=== PATIENT | male | born 1970 | race Caucasian/White ===

== ENCOUNTER 2019-07-24 14:42 | Outpatient (CLI) | payer OTHER, SELFPAY ==
--- NOTE | 2019-07-24 15:00 | USCV_ITS ---
Tutu Shane Age: 48 Gender: M : 1970 Exam Date: 07/24/2019 15:08 Ordering Phys: Jose Maharaj MD ([email or web address]) Technologist: SHASHI BLISS Exam Location: [facility] – [place] Indication: CHEST PAIN. ABNORMAL STRESS TEST. BP: 110 / 65 HR: 81 Rhythm: Sinus Technical Quality: Adequate MEASUREMENTS (Male / Female) Normal Values 2D ECHO LV Diastolic Diameter PLAX 4.7 cm 4.2 - 5.9 / 3.9 - 5.3 cm LV Systolic Diameter PLAX 2.8 cm IVS Diastolic Thickness 1.0 cm 0.6 - 1.0 / 0.6 - 0.9 cm IVS Systolic Thickness 1.4 cm LVPW Diastolic Thickness 0.8 cm 0.6 - 1.0 / 0.6 - 0.9 cm LVPW Systolic Thickness 1.5 cm LVOT Diameter 2.1 cm LV Ejection Fraction 2D Teich 71.4 % LV Ejection Fraction MOD 2C 68.3 % LV Ejection Fraction 2C AL 70.0 % LA Diameter 3.9 cm LA Width 3.7 cm LA Height 4.3 cm RA Width 3.5 cm RA Height 4.7 cm Aorta at Sinotubular Diameter 3.0 cm M-MODE LV Diastolic Diameter MM 5.4 cm 4.2 - 5.9 / 3.9 - 5.3 cm LV Systolic Diameter MM 3.3 cm LV Ejection Fraction MM Teich 69.4 % IVS Diastolic Thickness MM 0.8 cm 0.6 - 1.0 / 0.6 - 0.9 cm IVS Systolic Thickness MM 1.5 cm LVPW Diastolic Thickness MM 0.9 cm 0.6 - 1.0 / 0.6 - 0.9 cm LVPW Systolic Thickness MM 1.3 cm Aortic Annulus Diameter 3.3 cm LA Ao Ratio MM 1.2 MV E Point Septal Separation 0.1 cm DOPPLER AV Peak Velocity 105.0 cm/s LVOT Peak Velocity 89.0 cm/s AV Area Cont Eq vti 2.9 cm squared AV Area Cont Eq pk 2.9 cm squared MV Area PHT 3.2 cm squared Mitral E to A Ratio 1.3 MV E' Velocity 11.0 cm/s Mitral E to MV E' Ratio 7.6 Mitral E to LV E' Lateral Ratio 6.8 Mitral E to LV E' Septal Ratio 8.7 TV Peak E Velocity 46.0 cm/s Right Atrial Pressure 3.0 mmHg PV Peak Velocity 88.0 cm/s RV Acceleration Time 0.1 s RV Ejection Time 0.2 s RV AcT/ET 0.4 FINDINGS Left Ventricle Normal left ventricular size and systolic function, EF 67 %. No regional wall motion abnormalities. Right Ventricle The right ventricle is normal in size and function. Right Atrium The right atrium is normal in size. Left Atrium The left atrium is normal in size. Mitral Valve No gross abnormalities noted Aortic Valve No gross abnormalities noted Tricuspid Valve No gross abnormalities noted Pulmonic Valve No gross abnormalities noted Pericardium Normal pericardium without effusion. Aorta Normal ascending aorta dimension. CONCLUSIONS Normal left ventricular size and systolic function, EF 67 %. No regional wall motion abnormalities. Normal chamber sizes. No significant stenotic or elevated lesions noted There is no pericardial effusion. There are no intracardiac masses. Compared to the study report from 05/15/2013, there may not be a significant change Dr Jose Maharaj MD FACC (Electronically Signed) Final Date: 25 July 2019 16:12 S
== END 2019-07-24 14:43 | disposition home or self-care (01) ==
LOC: RAD 14:45
PROVIDERS: Family Provider Family Medicine; PCP Family Medicine; Visit Provider Internal Medicine Cardiovascular Disease
DX: R07.89 Other chest pain (principal); R94.39 Abnormal result of other cardiovascular function study
CPT/HCPCS: 93306

== ENCOUNTER 2019-08-06 05:55 | Day surgery (SDC) | payer OTHER, SELFPAY ==
--- NOTE | 2019-07-31 09:59 | XR_ITS ---
WS: [id number] PROCEDURE: XR chest 2V* [id number] CLINICAL INFORMATION: CHEST PAIN COMPARISON: March 18, 2013 FINDINGS: Heart: Normal cardiac silhouette. Lungs: Lungs are clear. No consolidation or pleural fluid. Bones: Normal visualized bony structures. XR/XR chest 2V* [id number] IMPRESSION: Normal chest
[2019-07-31 10:37] LABS: Basophils % 0.3 %; Eosinophils # 0.2 10^3/uL (0.0-0.8); Eosinophils % 2.6 %; Hematocrit 45.9 % (42.0-52.0); Hemoglobin 15.7 g/dL (11.7-16.6); Lymphocytes # 1.1 10^3/uL (0.8-4.8); Lymphocytes % 17.9 %; Mean Corpuscular HGB Conc 34.2 g/dL (30.0-36.0); Mean Corpuscular Hemoglobin 29.8 pg (28.0-34.0); Mean Corpuscular Volume 87.1 fL (80-94); Monocytes # 0.5 10^3/uL (0.2-0.9); Monocytes % 7.6 %; Neutrophils # 4.3 10^3/uL (1.8-7.7); Neutrophils % 71.1 %; Nucleated Red Blood Cells % 0 %; Platelet Count 240 10^3/cmm (130-400); Red Blood Count 5.27 10^6/uL (4.1-5.3); Red Cell Distribution Width 11.7 % (12.1-15.1); White Blood Count 6.1 10^3/uL (4.0-10.0)
[2019-07-31 10:43] LABS: INR 0.99 (0.8-1.2)
[2019-07-31 11:03] LABS: Anion Gap 16.5 (5-19); Blood Urea Nitrogen 17 mg/dL (6-20); Calcium 10.4 mg/Dl (8.6-10.0); Carbon Dioxide 26 mmol/L (22-29); Chloride 100 mmol/L (98-107); Glomerular Filtration Rate 89.7 mL/min (90-130); Glucose 105 mg/dL (74-109); Potassium 4.5 mmol/L (3.5-5.1); Sodium 138 mmol/L (136-145)
[2019-08-05 12:27] VITALS: BMI 28.8
[2019-08-06] VITALS (12 sets, daily range): BP systolic 95–156; BP diastolic 62–91; PULSE 62–74; RESP 14–18; TEMP 36.8; O2SAT 94–97; BMI 28.8
--- NOTE | 2019-08-06 06:00 | XACV_ITS ---
Ht: 183 cm Wt: 97 kg BSA: 2.23 m2 Gender: Male : 1970 Any Known Allergies: Other Exam Priority: Routine Procedure(s): Procedure Description: Diagnostic procedure Procedure Description: Left Heart Catheterization Procedure Description: Left ventriculography Procedure Description: Coronary Angiography Diagnostic Cath Status: Elective Diagnostic Findings No significant disease noted in the Left Main, LAD, Circumflex, or RCA coronary arteries. The left anterior descending artery appears to wrap around the LV apex minimally. The right coronary artery is a relatively large-caliber vessel. Coronary angiography shows right dominance. Conclusions No significant disease noted in the Left Main, LAD, Circumflex, or RCA coronary arteries. Normal left ventricular systolic function. Ejection fraction of 55%. Features of multiple small ventricular diverticuli were noted in the inferior wall region. Recommendations Continue current medical management and risk factor modification. Diagnostic RX Recommendation: medical therapy and/or counseling LV EDP: 21 mmHg Ejection Fraction: 55.0 % Pressures Phase:Rest AO : 83 mmHg / 67 mmHg ( 74 mmHg ) @ 1:25:00 AM 76 mmHg / 58 mmHg ( 68 mmHg ) @ 1:26:00 AM 75 mmHg / 58 mmHg ( 65 mmHg ) @ 1:27:00 AM 88 mmHg / 67 mmHg ( 78 mmHg ) @ 1:28:00 AM 113 mmHg / 66 mmHg ( 85 mmHg ) @ 1:33:00 AM 106 mmHg / 56 mmHg ( 76 mmHg ) @ 1:33:00 AM LV : 101 mmHg / 5 mmHg / @ 1:31:00 AM 94 mmHg / 5 mmHg / @ 1:33:00 AM 109 mmHg / 8 mmHg / @ 1:33:00 AM Valves Phase:DefaultPhase AV : 0.0 mmHg @ 7:42:14 AM AV Mean Gradient: 0.0 mmHg @ 7:42:14 AM Clinical Evaluation EBL: 5mL-10mL Procedural Details If H&P is completed, is and addenduem needed: Yes; If yes, is the addendum complete: N/A. Song time/date stamp having technical issues. Some dates/times will be out of order. Dr. Tejada called. 08/06/2019 07:24. Procedure Consent Obtained. Current Diagnosis : Chest Pain. Pre-Procedure Time Out. Identified patient by full name and date of as verbalized by the patient/guarantor. Does the consent match the physician's order: Yes. Accurate & Complete Informed Consent: Yes. Inpatient/Outpatient History & Physical on Chart: Yes. Visualize and Verify Site with Patient/Guarantor: N/A. Relevant Radiology Images available: Yes. Pre-op teaching completed and patient verbalized understanding. The risks, benefits, and alternatives of sedation and/or procedure were discussed by physician. The patient agrees to continue. Procedure started. [facility] Clinical Fraility Score: 3: Managing Well. 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 Chest Pain Symptom Assessment: Typical Angina Symptoms. Correct patient, site and procedure confirmed by cath team. Current diagnosis: Chest Pain. PERRLA. 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 Lungs clear x 5 lobes. IV Site on Arrival: 20 gauge in the left anticubital. IV Fluids: 0.9% NaCl at KVO. 0 mL infused prior to slabber light. Pre Procedural Pulses: right radial was 3+. Pre Procedural Pulses: bilateral dorsalis pedis was 3+. Pre Procedural Pulses: bilateral posterior tibial was 2+. Oxygen started at 2liters/min via nasal canula. right radial was prepped with chloroprep then draped in the usual sterile fashion. right groin was prepped with chloroprep then draped in the usual sterile fashion. Physician notified. Baseline sample Acquired. HR: 62 BPM. Physician arrived. Patient's family updated. Physician scrubbed in. Immediate Pre-Procedure Time Out. Correct Patient: Yes; Correct Procedure: Yes; Correct Site: Yes; Correct Patient Position: Yes; Correct Supplies: Yes; Dried Flammable Prep: Yes; Blood Products Available: N/A;. Lidocaine 1% infiltrated to the right radial. Arterial access obtained. A 5 bulgarian Esteban catheter in over wire. Multiple views taken of left coronary artery. Patient's family updated. Catheter redirected to the RCA. Multiple views taken of right coronary artery. Catheter removed over the exchange wire. A 5 bulgarian Angled Pig catheter in over wire. EDP Sample taken: LV 101/5,22; HR: 78 BPM; SpO2: 93%. LV gram performed in [place] @ 10 mL/second for a total of 30 mL. EDP Sample taken: LV 94/5,15; HR: 71 BPM; SpO2: 92%. Pullback taken: LV 109/8,21; AO 113/66(85); Mean: 0mmHg, Peak to Peak: 0mmHg, SEP: 0sec/min; HR: 77 BPM; SpO2: 91%. Catheter removed over the exchange wire. Physician scrubbed out. Physician review of cine films. TR band placed. Hemostasis obtained. Post Procedure: Pulses reassessed and unchanged. PERRLA. 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 No VTE prophylaxis required. Medication's Wasted: Lidocaine 1% = 18 mL. Medication's Wasted: Heparin = 1000 units. Medication's Wasted: Nitro = 49.8 mg. Medication's Wasted: Versed = 4 mg. Medication's Wasted: Fentanyl = 100 mg. Total IV fluids: 68 mL. Contrast type used: Omnipaque 300 mgI/mL, 500 mL bottle. Post-op diagnosis: Chest Pain, Abnormal Stress Test. Complications: None. Estimated blood loss: 5mL-10mL. Procedure completed. Patient transferred by wheelchair to CPRU. Vital chart was stopped. Site: Right Radial artery Sheath Size: 6 Fr Hemostasis Success: Unsuccessful Procedure Medications Start: 7:21 AM Stop: 7:21 AM Medication: Versed Amount: 1 mg Route: I.V. Start: 7:21 AM Stop: 7:21 AM Medication: Fentanyl Amount: 50 mcg Route: I.V. Start: 7:22 AM Stop: 7: AM Medication: Verapamil Amount: 5 mg Route: I.A. Start: 7:22 AM Stop: 7: AM Medication: Nitrogylcerin Amount: 200 mcg Route: I.A. Start: 7:23 AM Stop: 7:23 AM Medication: Heparin Amount: 5000 units Route: I.V. Start: 7:23 AM Stop: 7:23 AM Medication: Versed Amount: 1 mg Route: I.V. Start: 7:23 AM Stop: 7:23 AM Medication: Fentanyl Amount: 50 mcg Route: I.V. I, the attending physician, have reviewed and verified all procedure medications. Yes, all medications given per verbal order History/Risk Factors Hypertension: Yes Dyslipidemia: Yes Peripheral Arterial Disease (PAD): No Myocardial Infarction (SD): No Obesity: No Renal Disease: No Tobacco Use: Never Prior Interventions PCI: No CABG: No Valve Surgery: No Report Signatures Finalized by:Dr Jose Maharaj MD [facility] on 08/06/2019 8:18:18 PM
[2019-08-06] MEDS: diphenhydrAMINE 50 mg Capsule PO (06:41)
--- NOTE | 2019-08-06 10:29 | SUR.PHASEII ---
PT RESTING WITH EYES CLOSED. RESPONDS TO VERBAL COMMANDS. RIGHT HAND IS PWD. NO BLEEDING NOTED AT RIGHT WRIST. AT BEDSIDE
--- NOTE | 2019-08-06 11:08 | SUR.PHASEII ---
PT SLEEPING WITH EYES CLOSED. AWAKES ON VERBAL COMMAND. AT BEDSIDE. FELIX ENCISO AT BEDSIDE, AND REMOVED PRESSURE BAND OVER RIGHT WRIST AND PT TOLERATED WELL. CAP REFILL AT RIGHT HAND IS <3 SEC. SLIGHT PROXIMAL RAISED BUMP FROM INCISION SITE. MARKED WITH MARKER AND WILL CHECK 15MIN FOR DIFFERENCE (bleeding precautions).
--- NOTE | 2019-08-06 11:45 | SUR.PHASEII ---
pt stated no dizziness or lightheadness. skin at right hand pwd and cap refil <3sec. right radial pulse present. no swelling noted past the marked line by incision site. Urszula Floyd reviewed discharge instructions with patient. Walked pt and to facility doors. No ambulation issues.
== END 2019-08-06 11:45 | disposition home or self-care (01) ==
PROVIDERS: Family Provider Family Medicine; PCP Family Medicine; Visit Provider Internal Medicine Cardiovascular Disease
DX: R07.9 Chest pain, unspecified (principal); I10 Essential (primary) hypertension; E78.5 Hyperlipidemia, unspecified; R94.39 Abnormal result of other cardiovascular function study; Z79.82 Long term (current) use of aspirin
CPT/HCPCS: 36415; 71046; 80048; 85025; 85610; 86850; 86900; 93452; C1769; C1887; C1894; J1644; J2001; J2250; J3010; J3490; J7030; Q0163; Q9967

== ENCOUNTER → 2019-08-14 09:56 | Outpatient (BNVA) | payer OTHER, SELFPAY | PROVIDERS: Family Provider Family Medicine; PCP Family Medicine; Visit Provider Nurse Practitioner Family | DX: R07.9 Chest pain, unspecified (principal) | CPT/HCPCS: 80048 ==

== ENCOUNTER 2021-07-07 17:54 | Emergency (ER) | payer OTHER, SELFPAY ==
[2021-07-07 18:18] VITALS: BP 89/60; PULSE 99; RESP 22; TEMP 36.7; O2SAT 94
--- NOTE | 2021-07-07 19:04 | XRR_ITS ---
PROCEDURE INFORMATION: Exam: XR Chest Exam date and time: 07/07/2021 7:04 PM Age: 50 years old Clinical indication: Cough and shortness of breath; Additional info: SOB covid + x 12 days TECHNIQUE: Imaging protocol: XR of the chest. Views: 1 view. COMPARISON: CR XR chest 2V* [id number] 07/31/2019 10:08 AM FINDINGS: Limitations: The study is made with less than full inspiration. Lungs: Unremarkable. No consolidation. Pleural spaces: Unremarkable. No pleural effusion. No pneumothorax. Heart/Mediastinum: Unremarkable. No cardiomegaly. Bones/joints: Unremarkable. XR/XR chest 1V portable [id number] IMPRESSION: No acute findings.
--- NOTE | 2021-07-07 19:05 | ED_ITS ---
HPI - COVID General: Chief Complaint: COVID symptoms Stated Complaint: N/V Covid + Time Seen by Provider: 07/07/21 18:30 Triage information: Has fever, cough or shortness of breath . Exposure to COVID + person last 14 days History of Present Illness: MD complaint: known COVID positive Prior covid testing: yes, results known COVID 19 common symptoms: positive cough, dyspnea (mild at times), fatigue, nausea and vomiting; negative fever(s), throat pain or diarrhea COVID 19 other sytmptoms: negative chest pain Onset (ago): day(s) (14) Severity: moderate Pertinent comorbid conditions: hypertension Treatment prior to arrival: acetaminophen COVID Results: No Data to Display Review of Systems Const: Reports: fatigue; Denies: fever(s) ENMT: Denies: throat pain Card: Denies: chest pain Resp: Reports: dyspnea (mild at times) GI: Reports: abdominal pain (epigastric), nausea and vomiting; Denies: diarrhea PFSH ED PFSH: Medical History (Updated 07/07/21 @ 21:18 by Jax Martin DO) Diverticulitis DVT (deep venous thrombosis) Erectile dysfunction Femur fracture, right Fibromyalgia Generalized anxiety disorder Hyperlipidemia Hypertension Migraine Osteoarthritis Sciatica TIA (transient ischemic attack) Surgical History History of colon resection Family History (Updated 08/14/19 @ 09:17 by Sofi Ram RN) Father CAD (coronary artery disease) Had three SC Hypertension Grandfather Stroke three CVA Cancer Mother Atrial fibrillation Denies family history of Anesthesia complication Social History (Updated 08/14/19 @ 09:18 by Sofi Ram RN) Smoking and tobacco status: never smoked Alcohol intake: current Alcohol intake frequency: holidays/special occasions on ly Last alcohol use date: 08/12/19 Physical Exam Const: COMMON NORMALS: patient oriented x3 and alert GENERAL APPEARANCE: ill appearing (mildly); not frail appearing HENMT: COMMON NORMALS: normocephalic HEAD & SCALP: normocephalic Chest: COMMONS NORMALS: normal inspection of the chest Resp: COMMON NORMALS: normal respiratory effort, No use of accessory muscles and clear to auscultation bilaterally AUSCULTATION: clear to auscultation bilaterally Cardio: COMMON NORMALS: regular rate and regular rhythm RATE: regular rate RHYTHM: regular rhythm GI: COMMON NORMALS: Normal to inspection, nondistended, normoactive bowel sounds present and Soft to palpation PALPATION: Yes Soft to palpation and Yes Tenderness to palpation present (GI) (epigastric) Neuro: COMMON NORMALS: patient oriented x3 SENSORIUM/ORIENTATION: Yes alert Course Vital Signs: Vital signs: Vital Signs Temperature 98.0 F 07/07/21 18:18 Pulse Rate 75 07/07/21 21:43 Respiratory Rate 18 07/07/21 21:43 Blood Pressure 128/81 07/07/21 21:43 Pulse Oximetry 97 07/07/21 21:43 MDM - COVID MDM Narrative: Medical decision making narrative: Chest x-ray is clear. Gastritis symptoms. Improved after fluid, antiemetics. White blood cell count is 10. BUN is 46 indicating prerenal azotemia. He is hypochloremic from vomiting. He'll go home on antiemetics and Pepcid. He is not hypoxic. Lab Data: Labs: Lab Results 07/07/21 07/07/21 07/07/21 19:24 19:24 19:24 WBC 10.2 10^3/uL H 10 ^3/uL (4.0-10.0) RBC 6.07 10^6/uL H 10 ^6/uL (4.1-5.3) Hgb 18.5 g/dL H g/dL (11.7-16.6) Hct 51.0 % % (42.0-52.0) MCV 84.0 fl fl (80-94) MCH 30.5 pg pg (28.0-34.0) MCHC 36.3 g/dL H g/dL (30.0-36.0) RDW 11.7 % L % (12.1-15.1) Plt Count 279 10^3/cmm 10^3 /cmm (130-400) MPV 10.1 fL fL (7.4-10.4) Neut % (Auto) 85.9 % % Lymph % (Auto) 7.1 % % [place] % (Auto) 6.1 % % Eos % (Auto) 0.1 % % Baso % (Auto) 0.1 % % Neut # (Auto) 8.79 10^3/uL H 10 ^3/uL (1.8-7.7) Lymph # (Auto) 0.7 10^3/uL L 10^ 3/uL (0.8-4.8) [place] # (Auto) 0.6 10^3/uL 10^3/ uL (0.2-0.9) Eos # (Auto) 0.0 10^3/uL 10^3/ uL (0.0-0.8) Baso # (Auto) 0.0 10^3/uL 10^3/ uL (0.0-0.1) Nucleated RBC % (a uto) 0 % % Nucleated RBCs # 0.0 /100WBC /100W BC Sodium 135 mmol/L L mmol /L (136-145) Potassium 3.7 mmol/L mmol/L (3.5-5.1) Chloride 93 mmol/L L mmol/ L (98-107) Carbon Dioxide 22 mmol/L mmol/L (22-29) Anion Gap 23.7 H (5-19) BUN 46 mg/dL H mg/dL (6-20) Creatinine 1.2 mg/dL mg/dL (0.7-1.2) GFR Calculation 63.8 mL/min L mL/ min (90-130) Glucose 150 mg/dL H mg/dL (65-115) Calculated Osmolal ity 295 mOsm/kg mOsm/ kg (285-295) Lactate 2.0 mmol/L mmol/L (0.5-2.2) Calcium 8.7 mg/dL mg/dL (8.5-10.5) Magnesium 2.5 mg/dL H mg/dL (1.7-2.3) Total Bilirubin 0.8 mg/dL mg/dL (0.15-1.2) AST 50 U/L H U/L (0-40) ALT 91 U/L H U/L (0-41) Alkaline Phosphata se 102 IU/L IU/L (40-130) C-Reactive Protein 14.8 mg/L H mg/L (0.0-4.9) Total Protein 7.8 g/dL g/dL (6.6-8.7) Albumin 4.3 g/dL g/dL (3.5-5.2) Globulin 3.5 g/dL g/dL (1.3-4.6) Lipase 57 U/L U/L (13-60) Urine Color Urine Appearance Urine pH Ur Specific Gravit y Urine Protein Urine Glucose (UA) Urine Ketones Urine Blood Urine Nitrate Urine Bilirubin Urine Urobilinogen Ur Leukocyte Gita ase 07/07/21 20:18 WBC RBC Hgb Hct MCV MCH MCHC RDW Plt Count MPV Neut % (Auto) Lymph % (Auto) [place] % (Auto) Eos % (Auto) Baso % (Auto) Neut # (Auto) Lymph # (Auto) [place] # (Auto) Eos # (Auto) Baso # (Auto) Nucleated RBC % (a uto) Nucleated RBCs # Sodium Potassium Chloride Carbon Dioxide Anion Gap BUN Creatinine GFR Calculation Glucose Calculated Osmolal ity Lactate Calcium Magnesium Total Bilirubin AST ALT Alkaline Phosphata se C-Reactive Protein Total Protein Albumin Globulin Lipase Urine Color Yellow (Yellow) Urine Appearance Clear (CLEAR) Urine pH 5 (5-7) Ur Specific Gravit y 1.020 (1.005-1.030) Urine Protein Neg (Negative) Urine Glucose (UA) Norm (Normal) Urine Ketones Negative (Negative) Urine Blood Neg (Negative) Urine Nitrate Negative (Negative) Urine Bilirubin 1+ H (Negative) Urine Urobilinogen 4 mg/dL H mg/dL (Negative) Ur Leukocyte Gita ase Negative (Negative) COVID Results: No Data to Display Discharge Plan Discharge Patient Disposition: Home Clinical Impression: COVID-19 Gastritis Qualifiers: Gastritis type: other gastritis Chronicity: acute Gastritis bleeding: without bleeding Qualified Code(s): K29.00 - Acute gastritis without bleeding Condition: Stable Prescriptions: New Zofran 4 mg tablet 4 mg PO Q6H PRN (Reason: nausea and vomiting) Qty: 10 RF: 0 Pepcid 20 mg tablet 20 mg PO BID Qty: 30 RF: 0 No Action metoprolol succinate 50 mg tablet extended release 24 hr 50 mg PO DAILY RF: 0 lisinopril-hydrochlorothiazide 10-12.5 mg tablet 1 tab PO DAILY RF: 0 sumatriptan succinate [Imitrex] 50 mg tablet 50 mg PO ONCE PRN (Reason: migraine headache) RF: 0 nitroglycerin [Nitrostat] 0.4 mg tablet, sublingual 0.4 mg SUBLINGUAL Q5M PRN (Reason: chest pain) Qty: 30 RF: 3 Discharge Orders: Discharge ED (Routine); Ordered 12/24/21 Ordered By: Jax Martin Referrals: Gabriele Spence MD [Primary Care Provider] - 4-7 days Discharge Diet: Advance as tolerated and Clear Liquid Discharge Activity: Increase activity as tolerated Patient Instructions: Gastritis (ED), COVID-19 (Coronavirus Disease 2019) (ED) Activity Restrictions/Additional Instructions: Take the medications you were dispensed as ordered. You may fill your prescription on Saturday and take those as needed. Return for worsening belly pain, worsening fever, worsening vomiting despite treatment, any other concerning symptom. Start with a liquid diet, and advance from there if you have not thrown up in 12 hours. Coding Level of Care Code ED Transport Truck Driver for Chg Fwd Exam Detailed
[2021-07-07 19:31] LABS: Basophils % 0.1 %; Eosinophils % 0.1 %; Hemoglobin 18.5 g/dL (11.7-16.6); Lymphocytes # 0.7 10^3/uL (0.8-4.8); Lymphocytes % 7.1 %; Mean Corpuscular HGB Conc 36.3 g/dL (30.0-36.0); Mean Corpuscular Hemoglobin 30.5 pg (28.0-34.0); Mean Platelet Volume 10.1 fL (7.4-10.4); Monocytes # 0.6 10^3/uL (0.2-0.9); Monocytes % 6.1 %; Neutrophils # 8.79 10^3/uL (1.8-7.7); Neutrophils % 85.9 %; Nucleated Red Blood Cells % 0 %; Platelet Count 279 10^3/cmm (130-400); Red Blood Count 6.07 10^6/uL (4.1-5.3); Red Cell Distribution Width 11.7 % (12.1-15.1); White Blood Count 10.2 10^3/uL (4.0-10.0)
[2021-07-07] MEDS: ondansetron 2 mg/ML SDV 2 mL 8 MG IVP (19:34)
[2021-07-07] MEDS: sodium chloride 0.9% 1,000 ML 999 ML IV (19:34)
[2021-07-07] MEDS: famotidine 20 mg/2 mL INJ 40 MG IVP (19:34)
[2021-07-07 19:35] VITALS: O2SAT 96
[2021-07-07 19:51] LABS: Alanine Aminotransferase 91 U/L (0-41); Albumin Level 4.3 g/dL (3.5-5.2); Alkaline Phosphatase 102 IU/L (40-130); Anion Gap 23.7 (5-19); Aspartate Amino Transferase 50 U/L (0-40); Blood Urea Nitrogen 46 mg/dL (6-20); C Reactive Protein 14.8 mg/L (0.0-4.9); Calcium 8.7 mg/dL (8.5-10.5); Carbon Dioxide 22 mmol/L (22-29); Chloride 93 mmol/L (98-107); Creatinine Clr Calc Pharmacy 83.4717; Globulin 3.5 g/dL (1.3-4.6); Glomerular Filtration Rate 63.8 mL/min (90-130); Glucose 150 mg/dL (65-115); Lipase 57 U/L (13-60); Magnesium 2.5 mg/dL (1.7-2.3); Osmolality Calculated 295 mOsm/kg (285-295); Potassium 3.7 mmol/L (3.5-5.1); Sodium 135 mmol/L (136-145); Total Bilirubin 0.8 mg/dL (0.15-1.2); Total Protein 7.8 g/dL (6.6-8.7)
[2021-07-07 20:33] LABS: Add Urine Microscopic? NO; Charge for UA Resulting for Rev
[2021-07-07 20:35] LABS: Bilirubin Urine 1+ (Negative); Blood Urine Neg (Negative); Glucose Urine UA Norm (Normal); Ketones Urine Negative (Negative); Leukocyte Esterase Urine Negative (Negative); Nitrate Urine Negative (Negative); Protein Urine Neg (Negative); Urine Appearance Clear (CLEAR); Urine Color Yellow (Yellow); Urobilinogen Urine 4 mg/dL (Negative); pH Urine 5 (5-7)
[2021-07-07] MEDS: famotidine 20 mg Tablet 40 MG PO (21:31)
[2021-07-07] MEDS: HYDROcodone-acetaminophen 5-325 mg Tablet 4 TAB PO (21:32)
[2021-07-07] MEDS: ondansetron 4 MG Tablet 16 MG PO (21:33)
[2021-07-07 21:43] VITALS: BP 128/81; PULSE 75; RESP 18; O2SAT 97
== END 2021-07-07 21:45 | disposition home or self-care (01) ==
PROVIDERS: Emergency Provider Emergency Medicine; PCP Family Medicine
DX: U07.1 COVID-19 (principal); K29.00 Acute gastritis without bleeding; E78.5 Hyperlipidemia, unspecified; I10 Essential (primary) hypertension; Z86.73 Personal history of transient ischemic attack (TIA), and cerebral infarction without residual deficits; Z86.718 Personal history of other venous thrombosis and embolism
CPT/HCPCS: 71045; 80053; 81003; 83605; 83690; 83735; 85025; 86140; 96361; 96374; 96375; 99284; J2405; J3490; J7030; Q0162

== ENCOUNTER 2024-07-16 11:48 | Outpatient (RCR) | payer BC, SELFPAY | END 2024-08-14 23:59 | disposition home or self-care (01) | LOC: SPT 11:48 | PROVIDERS: PCP Family Medicine; Visit Provider Orthopaedic Surgery | DX: Z98.890 Other specified postprocedural states (principal) | CPT/HCPCS: 97110; 97140; 97161 ==

== ENCOUNTER 2024-08-15 06:30 | Outpatient (RCR) | payer BC, SELFPAY | END 2024-09-11 23:59 | disposition home or self-care (01) | LOC: SPT 06:30 | PROVIDERS: PCP Family Medicine; Visit Provider Orthopaedic Surgery | DX: Z98.890 Other specified postprocedural states (principal) | CPT/HCPCS: 97110; 97164 ==

== ENCOUNTER 2024-09-12 06:00 | Outpatient (RCR) | payer BC, SELFPAY | END 2024-10-12 23:59 | disposition home or self-care (01) | LOC: SPT 06:00 | PROVIDERS: PCP Family Medicine; Visit Provider Orthopaedic Surgery | DX: Z98.890 Other specified postprocedural states (principal) | CPT/HCPCS: 97110 ==

== ENCOUNTER 2024-10-15 10:28 | Outpatient (RCR) | payer BC, SELFPAY | END 2024-11-11 23:59 | disposition home or self-care (01) | LOC: SPT 10:28 | PROVIDERS: PCP Family Medicine; Visit Provider Orthopaedic Surgery | DX: Z98.890 Other specified postprocedural states (principal) | CPT/HCPCS: 97110 ==